=== PATIENT | female | born 1955 | race Caucasian/White ===

== ENCOUNTER → 2016-11-13 | Outpatient (CLI) | payer BC ==
--- NOTE | 2016-11-14 14:26 | MAMMOGRAPHY REPORT ---
BILATERAL DIGITAL SCREENING MAMMOGRAM TOMOSYNTHESIS WITH CAD: 11/13/2016 CLINICAL HISTORY: Routine screening. Patient has no complaints. TECHNIQUE: Breast tomosynthesis in addition to standard 2D mammography was performed. Current study was also evaluated with a Computer Aided Detection (CAD) system. COMPARISON: Comparison is made to exams dated: 01/17/2010 mammogram, 04/04/2011 mammogram, 04/10/2012 m ammogram, 04/13/2013 mammogram, and 04/23/2013 mammogram - [facility]. BREAST COMPOSITION: There are scattered areas of fibroglandular density in both breasts. There are mild involutional changes compared to prior exams. FINDINGS: No new suspicious mass, architectural distortion or cluster of microcalcifications is see n. IMPRESSION: ACR BI-RADS CATEGORY 1: NEGATIVE There is no mammographic evidence of malignancy. A 1 year screening mammogram is recommended. The p atient will receive written notification of the results. Approximately 10% of breast cancers are not detected with mammography. A negative mammographic repor t should not delay biopsy if a clinically suggestive mass is present. Gita Riojas M.D. ay/:11/13/2016 22:43:59 [employer]: Kimberly SALGUERO)(Charli)([place]), [facility] letter sent: Normal 1/2 BI-RADS Code: ACR BI-RADS Category 1: Negative
== END | disposition home or self-care (01) ==
LOC: C.MAMM 11:26
PROVIDERS: ATTEND Family Medicine
DX: Z12.31 Encounter for screening mammogram for malignant neoplasm of breast (principal)

== ENCOUNTER → 2017-05-16 | Outpatient (CLI) | payer BC | END | disposition home or self-care (01) | LOC: C.RDSM 09:58 | PROVIDERS: ATTEND Family Medicine Sports Medicine | DX: M25.562 Pain in left knee (principal) ==

== ENCOUNTER → 2017-07-30 | Outpatient (CLI) | payer BC ==
--- NOTE | 2017-07-30 14:08 | DIAGNOSTIC IMAGING REPORT ---
MRI OF THE LEFT KNEE WITHOUT CONTRAST CLINICAL HISTORY: Left knee pain. Effusion. COMPARISON STUDY: Left knee radiographs May 16, 2017. TECHNIQUE: Utilizing a 1.5 Jeni magnet and dedicated coil, multiplanar, multiecho imaging of the left knee was performed without intravenous or intraarticular contrast. FINDINGS: Alignment of the left knee is anatomic. Extensor mechanism is intact. There is no joint effusion. No suspicious marrow replacement is present. The cruciate and collateral ligaments are intact. There is a high grade complex tear of the posterior root of the medial meniscus. Tear extends into the posterior horn and body of the medial meniscus. The medial meniscus is partially extruded. There is also an oblique tear of the body and anterior horn of the lateral meniscus. There is mild tricompartmental chondrosis within the left knee. No full-thickness cartilage defects are identified. IMPRESSION: 1. High-grade complex tear of the posterior root of the medial meniscus with extension into the posterior horn and body of the medial meniscus. 2. Oblique tear of the body and anterior horn of the lateral meniscus. 3. Mild tricompartmental chondrosis. No full-thickness cartilage defects. Electronically signed by: Joseph Chaparro M.D. 07/30/2017 2:07 PM Dictated Date/Time: 07/30/2017 1:54 PM
== END | disposition home or self-care (01) ==
LOC: C.MRI 13:09
PROVIDERS: ATTEND Family Medicine Sports Medicine
DX: M25.562 Pain in left knee (principal); M25.462 Effusion, left knee

== ENCOUNTER → 2017-10-30 | Outpatient (CLI) | payer OTHER ==
--- NOTE | 2017-10-30 15:52 | DIAGNOSTIC IMAGING REPORT ---
L SHOULDER MIN 2 VIEWS ROUTINE CLINICAL HISTORY: Left shoulder pain status post trauma COMPARISON: None. DISCUSSION: No fractures or dislocations are visualized. IMPRESSION: No fractures identified. Electronically signed by: Raul Aguirre M.D. 10/30/2017 3:51 PM Dictated Date/Time: 10/30/2017 3:51 PM
--- NOTE | 2017-10-30 15:59 | DIAGNOSTIC IMAGING REPORT ---
FACIAL BONES MIN 3 VIEWS RTN CLINICAL HISTORY: JAW PAIN, CHO, CONTUSION OF EYEBALL AND ORBITAL TISSUES, FALL COMPARISON STUDY: No previous studies for comparison. FINDINGS: There is no evidence of orbital emphysema. No air-fluid levels are visualized within the maxillary sinuses. No facial fractures are visualized on conventional radiographic imaging. If symptoms persist, CT scanning could be obtained in follow-up to evaluate for occult fracture. IMPRESSION: No facial fractures identified on conventional radiographic imaging. Electronically signed by: Raul Aguirre M.D. 10/30/2017 3:58 PM Dictated Date/Time: 10/30/2017 3:49 PM
== END | disposition home or self-care (01) ==
LOC: C.RAD1850 15:11
PROVIDERS: ATTEND Nurse Practitioner Family
DX: R68.84 Jaw pain (principal); R51 Headache; M25.512 Pain in left shoulder; S05.12XA Contusion of eyeball and orbital tissues, left eye, initial encounter; S00.12XA Contusion of left eyelid and periocular area, initial encounter; W00.0XXA Fall on same level due to ice and snow, initial encounter